=== PATIENT | male | born 1950 | race Caucasian/White ===

== ENCOUNTER → 2017-09-29 | Outpatient (CLI) | payer OTHER ==
[~2017-09-29] MED LIST: ALLO300T2 PO; AMLO5TAB2 PO; ATEN-173 PO; GLC/500 PO; LISI40TA PO; SULF800T23 PO
== END | disposition home or self-care (01) ==
LOC: C.LABSPEC 11:41
PROVIDERS: ATTEND Podiatrist
DX: E11.621 Type 2 diabetes mellitus with foot ulcer (principal)